=== PATIENT | female | born 1995 | race American Indian/Alaskan Native ===

== ENCOUNTER 2020-09-19 15:14 | Emergency (ER) | payer BC ==
--- NOTE | 2020-09-19 16:08 | Emergency Department Report ---
ED ENT HPI - General Chief complaint: Sore Throat Stated complaint: ACUTE TONSILITIS Time Seen by Provider: 09/19/20 15:49 Source: patient Mode of arrival: Ambulatory Limitations: No Limitations - History of Present Illness Initial comments: Patient is a 25-year-old female presents emergency room complaints of a sore throat that began last night. She has associated pain with swallowing. She is able to tolerate p.o. intake but states that she does not want to swallow secondary to pain but is still able to. She denies any fever, vomiting, diarrhea, shortness of breath. Patient states that she went to urgent care and was given a dexamethasone shot and was advised to be evaluated in the emergency department. No past medical history. No allergies to medications. - Related Data Previous Rx's Medication Instructions Recorded Last Taken Type Amoxicillin [Trimox CAP] 500 mg PO BID 10 Days #20 capsule 09/19/20 Unknown Rx Nystas/Diphen/Xyl Visc/Mylanta 30 ml MM Q4H PRN #300 ml 09/19/20 Unknown Rx [Magic Mouthwash] dexAMETHasone [Dexamethasone] 4 mg PO DAILY 5 Days ml 09/19/20 Unknown Rx Allergies Allergy/AdvReac Type Severity Reaction Status Date / Time No Known Allergies Allergy Unverified 09/19/20 15:20 ED Dental HPI - General Chief complaint: Sore Throat Stated complaint: ACUTE TONSILITIS Time Seen by Provider: 09/19/20 15:49 Source: patient Mode of arrival: Ambulatory Limitations: No Limitations - Related Data Previous Rx's Medication Instructions Recorded Last Taken Type Amoxicillin [Trimox CAP] 500 mg PO BID 10 Days #20 capsule 09/19/20 Unknown Rx Nystas/Diphen/Xyl Visc/Mylanta 30 ml MM Q4H PRN #300 ml 09/19/20 Unknown Rx [Magic Mouthwash] dexAMETHasone [Dexamethasone] 4 mg PO DAILY 5 Days ml 09/19/20 Unknown Rx Allergies Allergy/AdvReac Type Severity Reaction Status Date / Time No Known Allergies Allergy Unverified 09/19/20 15:20 ED Review of Systems ROS: Stated complaint: ACUTE TONSILITIS Other details as noted in HPI Comment: All other systems reviewed and negative ED Past Medical Hx - Past Medical History Previous Medical History?: No - Surgical History Past Surgical History?: No - Social History Smoking Status: Never Smoker Substance Use Type: None - Medications Home Medications: Home Medications Medication Instructions Recorded Confirmed Last Taken Type Amoxicillin [Trimox CAP] 500 mg PO BID 10 Days #20 capsule 09/19/20 Unknown Rx Nystas/Diphen/Xyl Visc/Mylanta 30 ml MM Q4H PRN #300 ml 09/19/20 Unknown Rx [Magic Mouthwash] dexAMETHasone [Dexamethasone] 4 mg PO DAILY 5 Days ml 09/19/20 Unknown Rx ED Physical Exam - General Limitations: No Limitations General appearance: alert, in no apparent distress - Head Head exam: Present: atraumatic, normocephalic - Eye Eye exam: Present: normal appearance - ENT ENT exam: Present: mucous membranes moist, other (moderate bilateral tonsillar hypertrophy with erythema, no significant exudates, uvula is midline, no uvular edema or deviation, airway is intact, no muffled voice, no trismus, no tongue elevation, no submandibular edema) - Respiratory Respiratory exam: Present: normal lung sounds bilaterally. Absent: respiratory distress, wheezes, rales, rhonchi, stridor, chest wall tenderness, accessory muscle use, decreased breath sounds, prolonged expiratory - Cardiovascular Cardiovascular Exam: Present: regular rate, normal rhythm, normal heart sounds. Absent: systolic murmur, diastolic murmur, rubs, gallop - Neurological Exam Neurological exam: Present: alert, oriented X3 - Psychiatric Psychiatric exam: Present: normal affect, normal mood - Skin Skin exam: Present: warm, dry, intact ED Course Vital Signs 09/19/20 09/19/20 15:21 16:54 Temperature 99.5 F Pulse Rate 74 89 Respiratory 20 19 Rate Blood Pressure 145/87 Blood Pressure 131/71 [Right] O2 Sat by Pulse 100 98 Oximetry ED Medical Decision Making - Medical Decision Making Patient is a 25-year-old female presents emergency room complaints of a sore throat that began last night. She has associated pain with swallowing. She is able to tolerate p.o. intake but states that she does not want to swallow secondary to pain but is still able to. She denies any fever, vomiting, diarrhea, shortness of breath. Patient states that she went to urgent care and was given a dexamethasone shot and was advised to be evaluated in the emergency department. No past medical history. No allergies to medications. vss. on exam: moderate bilateral tonsillar hypertrophy with erythema, no significant exudates, uvula is midline, no uvular edema or deviation, airway is intact, no muffled voice, no trismus, no tongue elevation, no submandibular edema. Patient has no signs of peritonsillar abscess, her airway is intact. Patient given prescription for medications. Advised patient Please take medication as prescribed. Increase your fluid intake. Gargle with warm salt water 3 times a day. Throw away your toothbrush. Do not drink after others allow others drink after you. May use throat lozenges. Follow-up with your primary care doctor. Return to emergency room for new or worse symptoms. Discussed return precautions with patient. Critical care attestation.: If time is entered above; I have spent that time in minutes in the direct care of this critically ill patient, excluding procedure time. ED Disposition Clinical Impression: Tonsillitis Disposition: TO HOME OR SELFCARE Is pt being admited?: No Does the pt Need Aspirin: No Condition: Stable Instructions: Tonsillitis, Tauw-td-Pant Additional Instructions: Please take medication as prescribed. Increase your fluid intake. Gargle with warm salt water 3 times a day. Throw away your toothbrush. Do not drink after others allow others drink after you. May use throat lozenges. Follow-up with your primary care doctor. Return to emergency room for new or worse symptoms. Prescriptions: dexAMETHasone [Dexamethasone] 4 mg PO DAILY 5 Days ml Nystas/Diphen/Xyl Visc/Mylanta [Magic Mouthwash] 30 ml MM Q4H PRN #300 ml PRN Reason: sore throat Amoxicillin [Trimox CAP] 500 mg PO BID 10 Days #20 capsule Referrals: PRADEEP TAVERAS MD [Staff Physician] - 2-3 Days [facility] [Provider Group] - 2-3 Days Time of Disposition: 16:05 Print Language: TURKISH
[2020-09-19 16:55] VITALS: BP 131/71
== END 2020-09-19 16:54 | disposition home or self-care (01) ==
LOC: ED 15:14
DX: J03.90 Acute tonsillitis, unspecified (principal); Z79.899 Other long term (current) drug therapy
CPT/HCPCS: 99282

== ENCOUNTER 2021-07-19 22:59 | Emergency (ER) | payer BC ==
--- NOTE | 2021-07-20 00:17 | XRay Report ---
CHEST 2 VIEWS INDICATION / CLINICAL INFORMATION: chestpain. COMPARISON: None available. FINDINGS: SUPPORT DEVICES: None. HEART / MEDIASTINUM: No significant abnormality. LUNGS / PLEURA: No significant pulmonary or pleural abnormality. No pneumothorax. ADDITIONAL FINDINGS: No significant additional findings. IMPRESSION: 1. No acute findings. Signer Name: West Davis DO Signed: 07/20/2021 12:13 AM Workstation Name: [id number]
[2021-07-20 00:26] LABS: Basophils % (Auto) 0.2 % (0.0-1.8); Hematocrit 41.9 % (30.3-42.9); Hemoglobin 13.7 gm/dl (10.1-14.3); Lymphocytes # (Auto) 1.1 K/mm3 (1.2-5.4); Lymphocytes % (Auto) 7.6 % (13.4-35.0); Mean Corpuscular HGB Conc 33 % (30-34); Mean Corpuscular Volume 72 fl (79-97); Monocytes % (Auto) 7.3 % (0.0-7.3); Platelet Count 188 K/mm3 (140-440); Red Blood Count 5.81 M/mm3 (3.65-5.03); Red Cell Distribution Width 16.5 % (13.2-15.2)
[2021-07-20] MEDS ORDERED: KETOROLAC 30 MG/1 ML INJ IV ONE (00:28)
[2021-07-20] MEDS ORDERED: ACETAMINOPHEN 500 MG TAB PO ONE (00:28)
[2021-07-20] MEDS ORDERED: SODIUM CHLORIDE 0.9% 1000 ML 1,000 ML IV ONE (00:28)
[2021-07-20 00:45] LABS: Blood Urea Nitrogen 10 mg/dL (7-17); Calcium 9.4 mg/dL (8.4-10.2); Hemolysis Index 9
[2021-07-20 00:49] LABS: BUN/Creatinine Ratio 14
[2021-07-20 02:08] LABS: Alanine Aminotransferase 14 units/L (7-56); Albumin 4.8 g/dL (3.9-5)
[2021-07-20 02:16] LABS: Bilirubin,Direct < 0.2 mg/dL (0-0.2)
[2021-07-20] MEDS ORDERED: cefTRIAXone/NS 1 GM/50 ML 1 GM/50 ML BAG IV ONE (02:37)
[2021-07-20 03:28] VITALS: BP 130/88
[2021-07-20] MEDS ORDERED: LACTATED RINGERS 1,000 ML IV ONE (03:39)
--- NOTE | 2021-07-20 03:39 | Cat Scan Report ---
CTA CHEST WITH CONTRAST INDICATION / CLINICAL INFORMATION: chest pain - elevated D-Dimer. TECHNIQUE: Axial CT images were obtained through the chest after injection of 100 cc of Omnipaque 350 IV contrast. 3 plane MIP and/or 3D reconstructions were produced. All CT scans at this location are performed using CT dose reduction for ALARA by means of automated exposure control. COMPARISON: None available. FINDINGS: PULMONARY ARTERIES: The opacification of the pulmonary arteries is inadequate for the evaluation of t he pulmonary artery; however, there is a peripheral wedge-shaped defect within the superior aspect of the left lower lobe which may represent pulmonary infarction.. THORACIC AORTA: No significant abnormality. HEART: No significant abnormality. CORONARY ARTERY CALCIFICATION: None. MEDIASTINUM / HIMANSHU: No significant abnormality. PLEURA: No pleural effusion. No pneumothorax. LUNGS: As detailed above there is a peripheral wedge-shaped defect involving the superior aspect of t he left upper lobe. ADDITIONAL FINDINGS: None. UPPER ABDOMEN: No acute findings. SKELETAL STRUCTURES: No significant osseous abnormality. IMPRESSION: 1. The opacification of the pulmonary arteries is inadequate for the evaluation for pulmonary emboli; however, there is a peripheral wedge-shaped consolidation noted within the superior aspect of the le ft lower lobe which may represent pulmonary infarction versus pneumonia. Signer Name: West Davis DO Signed: 07/20/2021 3:35 AM Workstation Name: [id number]
[2021-07-20] MEDS ORDERED: AZITHROMYCIN 250 MG TAB PO ONE (04:20)
[2021-07-20 05:53] LABS: Bacteria,Urine 1+ /HPF (Negative); Bilirubin,Urine NEG (Negative); Blood,Urine SM (Negative); Color,Urine Straw (Yellow); Protein,Urine <15 mg/dL mg/dL (Negative); Urobilinogen,Urine < 2.0 mg/dL (<2.0)
--- NOTE | 2021-07-20 06:40 | Emergency Department Report ---
ED Chest Pain HPI - General Chief Complaint: Chest Pain Stated Complaint: CHEST PAIN PUI?: No Source: patient Mode of arrival: Ambulatory Limitations: No Limitations - History of Present Illness Initial Comments: Patient is a 25-year-old -[place] female with a history of obesity presents to the ED with complaint of acute onset persistent diffuse body aches and pains, nasal and sinus congestion, persistent dry cough, pleuritic chest pain, fever and chills for the last 3 days. Patient states that she has been taking psnq-hou-rddophu medications with no relief. Patient states that no one else at home is had similar symptoms. Patient denies dizziness, syncope, nausea and vomiting, diarrhea, abdominal pain, dysuria, urinary frequency and urgency, change in vision, sore throat or vaginal bleeding. MD Complaint: chest pain (Pleuritic chest pain), other (dry cough, body aches, fever and chills) -: Sudden, days(s) (3) Onset: during exertion Pain Location: substernal Pain Radiation: none Severity: moderate Severity scale (0 -10): 4 Quality: aching, sharp Consistency: intermittent Improves With: nothing Worsens With: exertion, inspiration, palpation, other (cough) re: denies: nausea, vomting, diaphoresis, dyspnea, sense of impending doom Other Symptoms: cough, fever. denies: syncope, rash, acid taste in mouth, leg swelling, palpitations, burping Treatments Prior to Arrival: none Aspirin use within the Past 7 Days: (0) No - Related Data On Oral Contraceptives: No Previous Rx's Medication Instructions Recorded Last Taken Type Amoxicillin [Trimox CAP] 500 mg PO BID 10 Days #20 capsule 09/19/20 Unknown Rx Nystas/Diphen/Xyl Visc/Mylanta 30 ml MM Q4H PRN #300 ml 09/19/20 Unknown Rx [Magic Mouthwash] dexAMETHasone [Dexamethasone] 4 mg PO DAILY 5 Days ml 09/19/20 Unknown Rx Benzonatate [Tessalon Perles] 100 mg PO Q8HR #30 cap 07/20/21 Unknown Rx Cetirizine HCl [Zyrtec 10mg tab] 10 mg PO DAILY #30 tab 07/20/21 Unknown Rx Ibuprofen [Motrin] 800 mg PO Q8HR PRN #30 tablet 07/20/21 Unknown Rx levoFLOXacin [Levaquin] 750 mg PO QDAY #7 tablet 07/20/21 Unknown Rx methylPREDNISolone [Medrol 4MG 4 mg PO DAILY #21 tab 07/20/21 Unknown Rx DOSEPAK (21 tabs)] Allergies Allergy/AdvReac Type Severity Reaction Status Date / Time No Known Allergies Allergy Unverified 09/19/20 15:20 Heart Score - HEART Score History: Slightly suspicious EKG: Normal Age: < 45 Risk factors: No known risk factors Troponin: < normal limit HEART Score: 0 - EKG Read Time Time EKG Completed: 23:35 EKG Read Time: 23:40 - Critical Actions Critical Actions: 0-3 pts:0.9-1.7%risk of adverse cardiac event.Candidate for discharge ED Review of Systems ROS: Stated complaint: CHEST PAIN Other details as noted in HPI Constitutional: chills, fever, malaise, weakness Eyes: denies: eye pain, eye discharge, vision change ENT: congestion. denies: ear pain, throat pain Respiratory: cough, shortness of breath. denies: wheezing Cardiovascular: chest pain (Pleuritic chest pain). denies: palpitations Endocrine: no symptoms reported Gastrointestinal: denies: abdominal pain, nausea, vomiting, diarrhea Genitourinary: denies: urgency, dysuria, discharge Musculoskeletal: arthralgia, myalgia. denies: back pain, joint swelling Skin: denies: rash, lesions Neurological: headache. denies: weakness, paresthesias Psychiatric: denies: anxiety, depression Hematological/Lymphatic: denies: easy bleeding, easy bruising ED Past Medical Hx - Past Medical History Previous Medical History?: Yes Additional medical history: Obesity - Surgical History Past Surgical History?: No - Social History Smoking Status: Never Smoker Substance Use Type: None - Medications Home Medications: Home Medications Medication Instructions Recorded Confirmed Last Taken Type Amoxicillin [Trimox CAP] 500 mg PO BID 10 Days #20 capsule 09/19/20 Unknown Rx Nystas/Diphen/Xyl Visc/Mylanta 30 ml MM Q4H PRN #300 ml 09/19/20 Unknown Rx [Magic Mouthwash] dexAMETHasone [Dexamethasone] 4 mg PO DAILY 5 Days ml 09/19/20 Unknown Rx Benzonatate [Tessalon Perles] 100 mg PO Q8HR #30 cap 07/20/21 Unknown Rx Cetirizine HCl [Zyrtec 10mg tab] 10 mg PO DAILY #30 tab 07/20/21 Unknown Rx Ibuprofen [Motrin] 800 mg PO Q8HR PRN #30 tablet 07/20/21 Unknown Rx levoFLOXacin [Levaquin] 750 mg PO QDAY #7 tablet 07/20/21 Unknown Rx methylPREDNISolone [Medrol 4MG 4 mg PO DAILY #21 tab 07/20/21 Unknown Rx DOSEPAK (21 tabs)] ED Physical Exam - General Limitations: No Limitations General appearance: alert, in no apparent distress - Head Head exam: Present: atraumatic, normocephalic, normal inspection - Eye Eye exam: Present: normal appearance, PERRL, EOMI Pupils: Present: normal accommodation - ENT ENT exam: Present: normal orophraynx, mucous membranes moist, TM's normal bilaterally, normal external ear exam, other (Grossly congested nasal passages) - Neck Neck exam: Present: normal inspection, full ROM. Absent: tenderness, lymphadenopathy - Respiratory Respiratory exam: Present: normal lung sounds bilaterally, chest wall tenderness (Palpable reproducible anterior chest wall tenderness). Absent: respiratory distress, wheezes, rales, stridor, accessory muscle use, decreased breath sounds, prolonged expiratory - Cardiovascular Cardiovascular Exam: Present: normal rhythm, tachycardia, normal heart sounds. Absent: systolic murmur, diastolic murmur, rubs, gallop - GI/Abdominal GI/Abdominal exam: Present: soft, normal bowel sounds. Absent: tenderness, guarding, rebound, hyperactive bowel sounds, hypoactive bowel sounds, organomegaly - Extremities Exam Extremities exam: Present: normal inspection, full ROM, normal capillary refill. Absent: tenderness - Back Exam Back exam: Present: normal inspection, full ROM. Absent: tenderness, CVA tenderness (R), CVA tenderness (L), muscle spasm, paraspinal tenderness, vertebral tenderness - Neurological Exam Neurological exam: Present: alert, oriented X3, CN II-XII intact, normal gait, reflexes normal - Psychiatric Psychiatric exam: Present: normal affect, normal mood - Skin Skin exam: Present: warm, dry, intact, normal color. Absent: rash ED Course Vital Signs 07/19/21 07/20/21 07/20/21 23:29 03:27 05:13 Temperature 102.4 F H 100.0 F H 99.3 F Pulse Rate 107 H 90 90 Respiratory 18 18 16 Rate Blood Pressure 118/72 Blood Pressure 130/88 130/88 [Right] O2 Sat by Pulse 91 98 98 Oximetry JOSE C score - Jose C Score Age > 65: (0) No Aspirin use within the Past 7 Days: (0) No 3 or more CAD Risk Factors: (0) No 2 or more Angina events in past 24 hrs: (0) No Known CAD with more than 50% Stenosis: (0) No Elevated Cardiac Markers: (0) No ST Deviation Greater than 0.5mm: (0) No JOSE C Score: 0 ED Medical Decision Making - Lab Data Result diagrams: 07/20/21 00:12 07/20/21 00:12 - EKG Data EKG shows normal: sinus rhythm Rate: tachycardia - EKG Data Interpretation: normal EKG 07/20/21 06:41 The EKG shows sinus tachycardia with a ventricular rate of [address] or T wave abnormalities. - Radiology Data Radiology results: report reviewed, image reviewed [facility] [address] [place] [address] XRay Report Signed Patient: LISETTE GRIFFITH V MR#: [id number] : 1995 Acct:[id number] Age/Sex: 25 / F ADM Date: 07/19/21 Loc: ED Attending Dr: Ordering Physician: ED MD LAYTON Date of Service: 07/19/21 Procedure(s): XR chest routine 2V Accession Number(s): [id number] cc: ED MD LAYTON Fluoro Time In Minutes: CHEST 2 VIEWS INDICATION / CLINICAL INFORMATION: chestpain. COMPARISON: None available. FINDINGS: SUPPORT DEVICES: None. HEART / MEDIASTINUM: No significant abnormality. LUNGS / PLEURA: No significant pulmonary or pleural abnormality. No pneumothorax. ADDITIONAL FINDINGS: No significant additional findings. IMPRESSION: 1. No acute findings. Signer Name: West Atkinson DO Signed: 07/20/2021 12:13 AM Workstation Name: [id number] Transcribed By: YAW Dictated By: WEST ATKINSON DO Electronically Authenticated By: WEST ATKINSON DO Signed Date/Time: 07/20/2112 DD/ TD/TT: [facility] [address] [place] [address] Cat Scan Report Signed Patient: LISETTE GRIFFITH V MR#: [id number] : 1995 Acct:[id number] Age/Sex: 25 / F ADM Date: 07/19/21 Loc: ED Attending Dr: Ordering Physician: DEMETRIA BARBA Date of Service: 07/20/21 Procedure(s): CT angio chest Accession Number(s): [id number] cc: DEMETRIA BARBA CTA CHEST WITH CONTRAST INDICATION / CLINICAL INFORMATION: chest pain - elevated D-Dimer. TECHNIQUE: Axial CT images were obtained through the chest after injection of 100 cc of Omnipaque 350 IV contrast. 3 plane MIP and/or 3D reconstructions were produced. All CT scans at this location are performed using CT dose reduction for ALARA by means of automated exposure control. COMPARISON: None available. FINDINGS: PULMONARY ARTERIES: The opacification of the pulmonary arteries is inadequate for the evaluation of the pulmonary artery; however, there is a peripheral wedge-shaped defect within the superior aspect of the left lower lobe which may represent pulmonary infarction.. THORACIC AORTA: No significant abnormality. HEART: No significant abnormality. CORONARY ARTERY CALCIFICATION: None. MEDIASTINUM / HIMANSHU: No significant abnormality. PLEURA: No pleural effusion. No pneumothorax. LUNGS: As detailed above there is a peripheral wedge-shaped defect involving the superior aspect of the left upper lobe. ADDITIONAL FINDINGS: None. UPPER ABDOMEN: No acute findings. SKELETAL STRUCTURES: No significant osseous abnormality. IMPRESSION: 1. The opacification of the pulmonary arteries is inadequate for the evaluation for pulmonary emboli; however, there is a peripheral wedge-shaped consolidation noted within the superior aspect of the left lower lobe which may represent pulmonary infarction versus pneumonia. Signer Name: West Atkinson DO Signed: 07/20/2021 3:35 AM Workstation Name: [id number] Transcribed By: YAW Dictated By: WEST ATKINSON DO Electronically Authenticated By: WEST ATKINSON DO Signed Date/Time: 07/20/21 0335 DD/ 8 TD/TT: Print Cancel - Medical Decision Making This is a 25-year-old -[place] female with a history of obesity presents to the ED with complaint of acute onset persistent diffuse body aches and pains, nasal and sinus congestion, persistent dry cough, pleuritic chest pain, fever and chills for the last 3 days. Patient states that she has been taking [id number] medications with no relief. Patient states that no one else at home is had similar symptoms. In the ED, patient is alert and oriented x3 and is not in any distress but tachycardic and febrile. Patient was treated for fever, also with treated for nausea and vomiting and given pain medications. Patient received normal saline 1 L IV bolus x1 and LR 1 L IV bolus x1. EKG shows sinus tachycardia with a ventricular rate of 103 bpm. Patient's heart score is 0. Chest x-ray showed no acute cardiopulmonary normalities or pneumonitis. D-dimer was however elevated and chest CTA showed opacification of the pulmonary arteries is inadequate for the evaluation for pulmonary emboli; however, there is a peripheral wedge-shaped consolidation noted within the superior aspect of the left lower lobe which may represent pulmonary infarction versus pneumonia. Patient was treated in the ED with Rocephin 1 g IV x1 and azithromycin 1 g IV x1. On reevaluation, patient's fever and tachycardia resolved, patient was discharged home on medications and advised to follow-up with her primary care physician in 5 to 7 days for reevaluation or return to the ED immediately if symptoms get worse. - Differential Diagnosis Pneumonia; influenza; COVID-19; strep; UTI; PE; ACS Critical care attestation.: If time is entered above; I have spent that time in minutes in the direct care of this critically ill patient, excluding procedure time. ED Disposition Clinical Impression: Pleuritic chest pain, Acute costochondritis, Fever and chills Left lower lobe pneumonia Qualifiers: Pneumonia type: due to unspecified organism Qualified Code(s): J18.9 - Pneumonia, unspecified organism Disposition: 01 HOME / SELF CARE / HOMELESS Is pt being admited?: No Does the pt Need Aspirin: No Condition: Stable Instructions: Costochondritis, Hyfk-ft-Jtzn, Chest Wall Pain, Yssh-dv-[id number], Nonspecific Chest Pain, Adult, Wozt-ez-Bume, Fever, Adult, Nezl-xd-Gior, Community-Acquired Pneumonia, Adult, Jxgt-yr-Ovtv, Bacterial Pneumonia (ED) Additional Instructions: Take medication with food, drink plenty of fluids and follow-up with your primary care physician in 7 to 10 days for reevaluation. Return to the ED immediately if symptoms get worse. Prescriptions: levoFLOXacin [Levaquin] 750 mg PO QDAY #7 tablet methylPREDNISolone [Medrol 4MG DOSEPAK (21 tabs)] 4 mg PO DAILY #21 tab Ibuprofen [Motrin] 800 mg PO Q8HR PRN #30 tablet PRN Reason: pain and fever Benzonatate [Tessalon Perles] 100 mg PO Q8HR #30 cap Cetirizine HCl [Zyrtec 10mg tab] 10 mg PO DAILY #30 tab Referrals: PRADEEP TAVERAS MD [Primary Care Provider] - 3-5 Days Forms: Work/School Release Form(ED) Time of Disposition: 06:37 Print Language: EQUATORIAL GUINEAN
--- NOTE | 2021-07-20 09:22 | Electrocardiograph Report ---
[facility] Test Date: 2021-07-19 Test Time: 23:35:49 Pat Name: LISETTE GRIFFITH Department: Room: Gender: F Internal Medicine Nurse: RKROCHELLE : 1995 Requested By: BECKY LOZADA Order Number: [id number] Reading MD: Sy Johnston Measurements Intervals [place] Rate: 103 P: 55 W[place]: 166 QRS: 55 QRSD: 87 T: 54 QT: 318 QTc: 418 Interpretive Statements Sinus tachycardia No previous ECG available for comparison Electronically Signed On 07-20-2021 9:22:36 EDT by Sy Johnston
== END 2021-07-20 07:13 | disposition home or self-care (01) ==
LOC: ED 22:59
DX: R09.1 Pleurisy (principal); M94.0 Chondrocostal junction syndrome [Tietze]; R50.9 Fever, unspecified; J18.9 Pneumonia, unspecified organism
CPT/HCPCS: 36415; 71046; 71275; 80048; 80076; 81001; 84484; 84703; 85025; 85379; 87400; 93005; 96361; 96365; 96375; 99284; J0696; J1885; J7030; J7120; Q9967